=== PATIENT | female | born 1945 | race Caucasian/White ===

== ENCOUNTER → 2017-04-17 | Outpatient (CLI) | payer OTHER, BC ==
[~2017-04-17] MED LIST: ALLERGY TAB PO; ASPCH81X PO; ASTRAGALUS ROOT PO; BYS/5 PO; CALCIUM VITD PO; CONJ0.453 PO; DICL50TA3 PO; DVN/160 PO; GABA1CAP PO; HYDR25TA4 PO; LEVO100T PO; METRONIDAZOLE TOP; MULT-506 PO; PREMARIN CREAM; PSYL55.43; VALA1TAB31 PO
== END | disposition home or self-care (01) ==
LOC: C.PAPS 14:57
PROVIDERS: ATTEND Obstetrics & Gynecology
DX: Z12.4 Encounter for screening for malignant neoplasm of cervix (principal)